=== PATIENT | male | born 1985 | race Caucasian/White ===

== ENCOUNTER 2016-11-23 12:05 | Emergency (ER) | payer OTHER ==
[~2016-11-23] VITALS: Ht 180.3 cm; Wt 81.5 kg
[2016-11-23] MEDS ORDERED: KETOROLAC TROMETHAMINE 60 MG/2 ML VIAL IM ONE (14:30)
[2016-11-23 15:01] VITALS: BP 128/89
== END 2016-11-23 15:24 | disposition home or self-care (01) ==
LOC: EDBD 12:33 → EMS 12:33
DX: S63.502A Unspecified sprain of left wrist, initial encounter (principal); S53.401A Unspecified sprain of right elbow, initial encounter; F17.210 Nicotine dependence, cigarettes, uncomplicated; F12.90 Cannabis use, unspecified, uncomplicated; V00.131A Fall from skateboard, initial encounter; Y93.51 Activity, roller skating (inline) and skateboarding; Y92.89 Other specified places as the place of occurrence of the external cause; Y99.8 Other external cause status
CPT/HCPCS: 29125; 73080; 73110; 96372; 99284; J1885